=== PATIENT | male | born 1960 | race Caucasian/White ===

== ENCOUNTER 2017-06-17 07:36 | Day surgery (SDC) | payer MEDICARE ==
[2017-06-17] MEDS ORDERED: DURAGESIC1 PATCH .1 TRANSDERM (08:33)
[2017-06-17] MEDS ORDERED: ROXICODONE15 MG PO (08:34)
[2017-06-17] MEDS ORDERED: ZESTRIL40 MG PO (08:34)
[2017-06-17 08:42] VITALS: BP 144/79; BMI 38.1
[2017-06-17] MEDS ORDERED: NEXIUM40 MG PO (09:23)
[2017-06-17] MEDS ORDERED: TOPROL XL25 MG PO (09:23)
[2017-06-17 09:32] LABS: BASOPHILS 0.2 % (0-2); EOSINOPHILS 0.9 % (0-7); HEMATOCRIT 48.5 % (42.0-54.0); HEMOGLOBIN 16.6 g/dL (13.5-17.5); IMMATURE GRANULOCYTES 0.2 % (0-5); LYMPHOCYTES 15.2 % (15-50); MCH 31.1 pg (26.0-34.0); MCHC 34.2 g/dL (31.0-37.0); MEAN PLATELET VOLUME 10.7 fL (7.4-10.4); MONOCYTES 8.3 % (2-11); NEUTROPHILS 75.2 % (40-80); PLATELET COUNT 171 10x3/uL (130-400); RBC 5.33 10x6/uL (4.20-6.10); RDW 13.6 % (11.5-14.5); WBC 8.5 10x3/uL (4.8-10.8)
[2017-06-17 09:40] LABS: CALC OSMOLALITY 271 mosm/kg (275-300); CALCIUM 9.1 mg/dL (8.5-10.1); CARBON DIOXIDE 29.9 mmol/L (21.0-32.0); CHLORIDE - SERUM 100 mmol/L (98-107); GLUCOSE 88 mg/dL (74-106); SODIUM 137 mmol/L (136-145); UREA NITROGEN 10 mg/dL (7-18); eGFR NON AFRICAN AMERICAN 82 mL/min (90-120)
--- NOTE | 2017-06-17 11:23 | NUR ---
IV D/C'D CATH INTACT. D/C INSTRUCTIONS EXPLAINED TO PT. VOICED UNDERSTANDING. COPIES OF ALL GIVEN TO PT. D/C'D HOME VIA W/C TO PRIVATE CAR.
--- NOTE | 2017-06-26 14:40 | OP ---
PATIENT NAME: SHY CHAN MEDICAL RECORD: [id number] :60 LOCATION:[facility] ADMISSION DATE: SURGEON: YUDY ROSS DO DATE OF OPERATION: 06/17/2017 PROCEDURE: EGD with biopsies. INDICATION FOR PROCEDURE: Generalized abdominal pain, nausea, and vomiting. SCOPE: [employer] video gastroscope. MEDICATIONS: Propofol 270 mg, Versed 2 mg, and Zofran 4 mg; all IV per anesthesia. ESTIMATED BLOOD LOSS: Minimal. COMPLICATIONS: None. FINDINGS: Informed consent was given. The patient was made comfortable with the above medication. After reaching an adequate level of sedation by slow IV push, the patient was placed on her left side. The endoscope was then advanced under direct visualization through the mouth to the second portion of the duodenum. In the upper esophagus just below the cricopharyngeus, there were patches of heterotopic gastric mucosa. One of the sites was biopsied to confirm this diagnosis. The middle and distal esophagus appeared normal. At the GE junction, there was evidence of mild [place] classification A reflux-induced esophagitis. There were also findings consistent with possible Mayer esophagus. Cold forceps biopsies were taken to submit for histology to rule out diagnosis. The endoscope was then advanced beyond the GE junction and retroflexed to view the cardia, which appeared normal. In fundus and body of the stomach, there were scattered benign-appearing fundic gland polyps. In the antrum and the prepyloric region, there were streaks of erythema and some granularity consistent with gastritis. Random biopsies were taken to submit for histology and to rule out H. pylori. The endoscope was advanced beyond the pylorus into the duodenum where the bulb and second portion of the duodenum appeared normal. The scope was then withdrawn from the patient. The patient tolerated the procedure well and there were no complications. IMPRESSIONS: 1. 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 2. [place] class A reflux-induced esophagitis. 3. Possible Mayer esophagus with biopsies pending. 4. Benign-appearing fundic gland-type polyps in the fundus and body of the stomach. 4. Erythema and granularity of the distal stomach consistent with gastritis. Biopsies pending. PLAN AND RECOMMENDATIONS: 1. Discharge home when recovery parameters are met. 2. Followup biopsy specimen results. 3. Continue current medications. 4. Gastric emptying study regarding nausea and vomiting. 5. Recommend discontinuation of all tobacco products. 6. Further recommendations to follow results of gastric emptying study. OPERATIVE REPORT [id number] SHY CHAN TRANSINT:[id number] Voice Confirmation ID: [id number] DOCUMENT ID: [id number] YUDY ROSS DO at 1440 CC: [id number] DICTATION DATE: 06/17/17 1027 [employer]IOR [employer] MANAGER: 06/17/17 1323 [facility] 06/17/17 [id number] [place] [id number]
== END 2017-06-17 11:25 | disposition home or self-care (01) ==
LOC: D.OPS 07:36
PROVIDERS: Anesthesiology
DX: R10.84 Generalized abdominal pain (principal); K21.0 Gastro-esophageal reflux disease with esophagitis; K31.7 Polyp of stomach and duodenum; I10 Essential (primary) hypertension; Z01.812 Encounter for preprocedural laboratory examination